=== PATIENT | male | born 1975 | race Caucasian/White ===

== ENCOUNTER → 2023-03-14 | Outpatient (CLI) | payer OTHER ==
[~2023-03-14] VITALS: Ht 182.9 cm; Wt 129.3 kg
[~2023-03-14] MED LIST: MICARDIS20 MG PO
[2023-03-14 11:55] VITALS: BP 145/104; PULSE 81; TEMP 97.9
[2023-03-14 13:10] VITALS: BP 106/60; PULSE 74
[2023-03-14 13:20] VITALS: BP 100/40; PULSE 71
[2023-03-14 13:30] VITALS: BP 111/74; PULSE 72
[2023-03-14 13:45] VITALS: BP 116/64; PULSE 70
== END ==
LOC: COL.RAD 11:15
DX: Z01.89 Encounter for other specified special examinations (principal); M47.816 Spondylosis without myelopathy or radiculopathy, lumbar region; M47.812 Spondylosis without myelopathy or radiculopathy, cervical region; M48.02 Spinal stenosis, cervical region; Z98.1 Arthrodesis status
CPT/HCPCS: J2704; J3010; J7120